=== PATIENT | male | born 1995 | race Caucasian/White ===

== ENCOUNTER 2024-04-21 16:40 | Emergency (ER) | payer SELFPAY ==
[2024-04-21 16:46] VITALS: BP 121/88; PULSE 63; TEMP 36.6; O2SAT 100; BMI 17.7
--- NOTE | 2024-04-21 16:53 | PC.NURSE ---
Patient reports being unable to void, reports last time voided was at 1000.
--- NOTE | 2024-04-21 17:44 | ED_ITS ---
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 , and he was not able to provide the sample , he does have some suprapubic discomfort No fever no chills no other complaints and the patient mentioned that he had similar episode before when he had constipation with it He does have a chronic history of constipation and he mentioned that he had not went to the bathroom for the last 2 to 3 days but that his usual and normal self, the patient have no nausea no vomiting otherwise and has been drinking water with no difficulty Patient supposed to go for detox for alcohol Related Data Allergies Allergy/AdvReac Type Severity Reaction Status Date / Time citalopram (From Celexa) Allergy Severe Anxiety Verified 04/21/24 16:49 promethazine (From Phenergan) Allergy Severe Irritable Verified 04/21/24 16:49 Review of Systems ROS Status of ROS 10 or more systems reviewed and unremark able except as noted in history and below Exam Narrative Exam Narrative: Nurses notes and vital signs reviewed and patient is not hypoxic. General: Well-appearing and in no apparent distress. Skin: Warm, dry, no pallor noted. No rash. Head: Normocephalic, atraumatic. Neck: Supple, non-tender. Eye: Pupils are equal, round and EOMI. No scleral icterus. Ears, Nose, Mouth, and Throat: TM are clear, no nasal mucosal hypertrophy. Oral mucosa is moist, no posterior oropharynx erythema, uvula is mid-line Cardiovascular: Regular Rate and Rhythm without murmur, gallop or rub. Respiratory: No accessory muscle use or respiratory distress. Lungs are clear to auscultation, no wheezing, rales or rhonchi Chest Wall: no tenderness Back: No midline thoracic or lumbar vertebral tenderness. No CVA tenderness Musculoskeletal: normal ROM, no calf or popliteal tenderness, no lower extremity edema/swelling GI: Abdomen is soft, non-distended. Normal bowel sounds. No masses appreciated. Suprapubic discomfort, no rebound, guarding, or rigidity noted. Neurological: A&O x4. No cranial nerve dysfunction observed. No truncal ataxia. Moves all extremities. Sensation intact. Psychiatric: Cooperative and interactive. Normal mood and affect. Constitutional Vital Signs, click to edit/add: Last Vital Signs Temp 97.9 F 04/21/24 16:46 Pulse 63 04/21/24 16:46 Resp 16 04/21/24 16:46 BP 121/88 04/21/24 16:46 Pulse Ox 100 04/21/24 16:46 O2 Del Method Room Air 04/21/24 16:46 Course Vital Signs Vital signs: Vital Signs Temperature 97.9 F 04/21/24 16:46 Pulse Rate 63 04/21/24 16:46 Respiratory Rate 16 04/21/24 16:46 Blood Pressure 121/88 04/21/24 16:46 Pulse Oximetry 100 04/21/24 16:46 Oxygen Delivery Method Room Air 04/21/24 16:46 Temperature 97.9 F 04/21/24 16:46 Pulse Rate 63 04/21/24 16:46 Respiratory Rate 16 04/21/24 16:46 Blood Pressure 121/88 04/21/24 16:46 Pulse Oximetry 100 04/21/24 16:46 Oxygen Delivery Method Room Air 04/21/24 16:46 MDM - Male Genitourinary MDM Narrative Medical decision making narrative: Upon placement of the Aguirre catheter the patient had 750 cc of fluid drained Discharge Plan Discharge Chief Complaint: Urogenital-Male Clinical Impression: Acute retention of urine Patient Disposition: Home, Self-Care Time of Disposition Decision: 17:43 Print Language: Lithuanian Referrals: Physician,Non-Staff, MD [Primary Care Provider] - 1 week
[2024-04-21 17:46] LABS: Bilirubin Urine NEGATIVE (NEGATIVE); Blood Urine NEGATIVE (NEGATIVE); Clarity Urine CLEAR (CLEAR); Color Urine LT. YELLOW (YELLOW); Glucose Urine UA NEGATIVE (NEGATIVE); Ketones Urine NEGATIVE (NEGATIVE); Leukocyte Esterase Urine NEGATIVE (NEGATIVE); Nitrite Urine NEGATIVE (NEGATIVE); Protein Urine NEGATIVE (NEG/TRACE); Specific Gravity Urine <=1.005 (1.005-1.025); Urobilinogen Urine 0.2 EU/dL (0.2-1.0)
[2024-04-21 17:50] LABS: Urine Microscopic Indicated NO
[2024-04-21 17:55] LABS: Amphetamine Screen Urine NEGATIVE (NEGATIVE); Barbiturates Screen Urine NEGATIVE (NEGATIVE); Benzodiazepines Screen Urine NEGATIVE (NEGATIVE); Buprenorphine Screen Urine NEGATIVE (NEGATIVE); Cannabinoid Screen Urine POSITIVE (NEGATIVE); Cocaine Screen Urine NEGATIVE (NEGATIVE); Methadone Screen Urine NEGATIVE (NEGATIVE); Methamphetamines Screen Urine NEGATIVE (NEGATIVE); Opiate Screen Urine NEGATIVE (NEGATIVE); Oxycodone Screen Urine NEGATIVE (NEGATIVE); Phencyclidine Screen Urine NEGATIVE (NEGATIVE); Tricyclic Antidepressant Urine NEGATIVE (NEGATIVE)
== END 2024-04-21 18:35 | disposition home or self-care (01) ==
PROVIDERS: Emergency Provider Emergency Medicine
DX: R33.9 Retention of urine, unspecified (principal)
CPT/HCPCS: 80307; 81003; 99283